=== PATIENT | female | born 2000 | race Caucasian/White ===

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

== ENCOUNTER 2022-02-19 13:46 | Emergency (ER) | payer OTHER, SELFPAY ==
[2022-02-19 15:32] VITALS: BP 128/71; PULSE 68; RESP 22; TEMP 35.8; O2SAT 99
--- NOTE | 2022-02-19 16:17 | ED.GENADULT ---
HPI - General Adult General Chief complaint: Upper Respiratory Infection Stated complaint: Sore Throat,Congestion Time Seen by Provider: 02/19/22 16:17 Source: patient Mode of arrival: ambulatory Limitations: no limitations History of Present Illness HPI narrative: 21-year-old female patient presents to the [facility] with complaints of a sore throat for the past 5 days. Patient states she went to an urgent care yesterday and was tested for COVID, influenza and strep and all turned out negative. Patient was prescribed Tessalon Perles for the cough as well as Magic mouthwash to help with the throat pain. Patient states she has been also taking some [id number] cold and flu medications and nothing has helped. Patient states she continues to have a sore throat and was requesting antibiotics today. Denies any fevers, Does complain ofbody aches or chills. denies any abdominal pain, nausea, vomiting diarrhea. Related Data Home Medications Medication Instructions Recorded Confirmed norgestimate-ethinyl estradiol 1 tablet DAILY 01/24/20 01/24/20 0.18 mg/0.215mg/0.25mg-35 mcg(28)tablet (Tri-Sprintec (28)) Allergies Allergy/AdvReac Type Severity Reaction Status Date / Time No Known Allergies Allergy Verified 12/14/21 09:56 Review of Systems Review of Systems: CONSTITUTIONAL: Denies fever, positive bodyaches and chills, or sweats. EYES: Denies visual changes, redness, or discharge. ENT: Denies rhinorrhea, congestion,positive sore throat, or otalgia. CARDIOVASCULAR: Denies chest pain, palpitations, or edema. RESPIRATORY: positive cough, denies dyspnea. GASTROINTESTINAL: Denies abdominal pain, nausea, vomiting, or diarrhea. GENITOURINARY: Denies dysuria or hematuria. SKIN: Denies rash or itching. MUSCULOSKELETAL: Denies back pain, joint pain, or myalgia. NEUROLOGIC: Denies headache, numbness, or weakness. PSYCHIATRIC: Denies anxiety or depression. [facility] Past Medical History Medical History History of ovarian cyst No pertinent past medical history Surgical History Surgical History History of ovarian cystectomy No pertinent past surgical history Social History Social History Smoking status: Never smoker Gender identity (if verbalized by the patient): Female Comments At the time of my signature I agree with nursing past medical history, surgical, social, and family history. There is no relevant family history pertinent to the presenting complaint. Exam Narrative: GENERAL: Well-appearing, well-nourished, and in no acute distress. HEAD: Normocephalic, atraumatic. EYES: PERRLA and EOMI. ENT: Nares clear, no rhinorrhea or epistaxis. Mucous membranes moist. Posterior pharynx no erythema, tonsillar swelling, exudates or lesions present. Bilateral TMs are clear no erythema from Bodies of the canal. NECK: Supple. No lymphadenopathy CHEST: Clear to auscultation. No respiratory distress. HEART: Regular rate and rhythm. No murmur heard. Normal peripheral pulses. ABDOMEN: Soft, nontender, nondistended, normal active bowel sounds. EXTREMITIES: Normal range of motion. No edema. SKIN: Warm, dry, no rash. NEURO: No focal deficits. Alert and oriented x3. Course Course Level of Care: Express Care Visit Vital Signs Vital signs: Vital Signs Temperature 35.8 C L 02/19/22 15:32 Pulse Rate 68 02/19/22 15:32 Respiratory Rate 22 H 02/19/22 15:32 Blood Pressure 128/71 02/19/22 15:32 Pulse Oximetry 99 02/19/22 15:32 Oxygen Delivery Room Air 02/19/22 15:32 Temperature 35.8 C L 02/19/22 15:32 Pulse Rate 68 02/19/22 15:32 Respiratory Rate 22 H 02/19/22 15:32 Blood Pressure 128/71 02/19/22 15:32 Pulse Oximetry 99 02/19/22 15:32 Oxygen Delivery Room Air 02/19/22 15:32 Vital signs reviewed. Medical Decision Rick
== END 2022-02-19 16:27 | disposition home or self-care (01) ==
PROVIDERS: Emergency Provider Nurse Practitioner Family
DX: J02.8 Acute pharyngitis due to other specified organisms (principal)
CPT/HCPCS: 87081; 99212; G0463